=== PATIENT | male | born 1935 | race Caucasian/White ===

== ENCOUNTER 2016-11-05 10:03 | Emergency (ER) | payer MEDICARE, OTHER ==
[~2016-11-05] VITALS: Ht 180.3 cm; Wt 103.0 kg
[2016-11-05 10:05] VITALS: BP 171/70; PULSE 72; RESP 18; TEMP 97.8; O2SAT 98
[2016-11-05] MEDS ORDERED: LISI-515 PO (10:21)
[2016-11-05] MEDS ORDERED: LUPR30IN IM (10:21)
--- NOTE | 2016-11-05 11:44 | PD ---
HPI Chief Complaint: Fall Time Seen by Provider: 10:50 Travel History International Travel<30 days: No Contact w/Intl Traveler<30days: No Traveled to known affect area: No History of Present Illness HPI This patient came for evaluation for injuries suffered in a fall. His fall was 3 days ago. Severity of symptoms is mild. He is ambulatory. Tripped and fell and caught himself primarily on outstretched hands. He also scraped his left knee. PFSH Past Medical History Cancer: Yes (PROSTATE) Hypertension: Yes Radiation Therapy: Yes (FOR PROSTATE CA) Tetanus Vaccination: > 5 Years Past Surgical History Eye Surgery: Yes (CATARACT) Joint Replacement: Yes (B KNEES) Social History Alcohol Use: Yes (DAILY) Tobacco Use: No Substance Use: No Allergies-Medications (Allergen,Severity, Reaction): Coded Allergies: No Known Allergies (Verified Allergy, Unknown, 11/05/16) Reported Meds & Prescriptions Reported Meds & Active Scripts Active Reported Lupron Depot Inj Kit (Leuprolide (4 Month) Inj Kit) 30 Mg Syr 30 Mg IM [id number] Lisinopril 20 Mg Tab 20 Mg PO DAILY Review of Systems General / Constitutional: No: Fever HENT: No: Headaches Cardiovascular: No: Chest Pain or Discomfort Physical Exam Narrative Left knee: There is an abrasion on his left knee. Good range of motion. No sign of infection Hands: Patient has minor abrasion to the dorsum of the left hand and some abrasion to the palm of the right hand. No signs of infection on either. NEUROLOGICAL: Awake and alert. Pupils are equal round and reactive. Motor and sensory grossly within normal limits. Five out of 5 muscle strength in all muscle groups. Normal speech. SKIN: Focused skin assessment reveals no rash or ulcers. Skin is warm and dry. Palpation shows no induration or nodules. Data Data Last Documented VS Vital Signs Date Time Temp Pulse Resp B/P (MAP) Pulse Ox O2 Delivery O2 Flow Rate FiO2 11/05/16 10:05 97.8 72 18 171/70 (103) 98 Room Air Orders Orders Tetanus/Diphtheria Tox Adult (Tetanus/Di (11/05/16 11:45) MDM Medical Decision Making Medical Screen Exam Complete: Yes Emergency Medical Condition: Yes Medical Record Reviewed: Yes Differential Diagnosis Abrasion, contusion, fracture Narrative Course I have reviewed the patient's electronic medical record. I gave him a tetanus booster. He has multiple abrasions but not have any signs of infection. He is got some bruising but no suggestion of fracture from exam or history Stable for outpatient follow-up Diagnosis Primary Impression: Abrasion, multiple sites Additional Impression: Multiple contusions Additional Instructions: The patient was advised to follow up with their physician and return if they worsen. Med/Other Pt SpecificInfo: Other Disposition: 01 DISCHARGE HOME Condition: Stable Vini Granados MD Nov 05, 2016 11:44
[2016-11-05] MEDS ORDERED: TETANUS/DIPHTHERIA TOXOID ADULT 0.5 ML VIAL IM ONE (11:45)
== END 2016-11-05 12:05 | disposition home or self-care (01) ==
LOC: PHED 10:03
DX: S80.212A Abrasion, left knee, initial encounter (principal); S60.511A Abrasion of right hand, initial encounter; W01.0XXA Fall on same level from slipping, tripping and stumbling without subsequent striking against object, initial encounter
CPT/HCPCS: 90471; 90714; 99281